=== PATIENT | female | born 2000 | race Two or more races ===

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

== ENCOUNTER 2023-11-19 00:24 | Emergency (ER) | payer SELFPAY ==
[~2023-11-19] VITALS: Ht 165.1 cm; Wt 86.2 kg
[~2023-11-19 00:24] MED LIST changes: +ARIP5TAB10 PO; -ARIP5TAB4 PO
[2023-11-19 00:35] VITALS: BP 106/78; TEMP 98; O2SAT 99
[2023-11-19] MEDS ORDERED: ACETAMINOPHEN ES 500 MG TABLET ONE (00:46)
[2023-11-19] MEDS ORDERED: ONDANSETRON 4 MG TAB.RAPDIS ONE (00:46)
[2023-11-19] MEDS: ONDANSETRON 4 MG TAB.RAPDIS SL ONE (00:48)
[2023-11-19] MEDS: ACETAMINOPHEN 325 MG TABLET PO ONE (00:48)
[2023-11-19 01:04] LABS: BASOPHILS % (AUTO) 0.4 % (0.0-2.0); EOSINOPHILS % (AUTO) 0.2 % (0.0-6.0); HEMATOCRIT 34 % (33-45); HEMOGLOBIN 11.1 g/dL (11.5-14.8); LYMPHOCYTES # (AUTO) 2.2 K/uL (0.8-4.8); MEAN CORPUSCULAR HEMOGLOBIN 26 PG (26.0-33.0); MEAN CORPUSCULAR HGB CONC 33 g/dl (31.0-36.0); MEAN CORPUSCULAR VOLUME 81 fL (82-100); MONOCYTES # (AUTO) 0.5 K/uL (0.1-1.30); MONOCYTES % (AUTO) 5.3 % (2.0-12.0); NEUTROPHILS # (AUTO) 7.1 K/uL (1.8-8.9); NEUTROPHILS % (AUTO) 72.1 % (43.0-81.0); PLATELET COUNT (AUTO) 336 K/uL (150-450); RED BLOOD CELL COUNT(AUTO) 4.18 MIL/uL (4.0-5.2); RED CELL DISTRIBUTION WIDTH 13.5 % (11.5-15.0); WHITE BLOOD COUNT (AUTO) 9.8 K/uL (4.3-11.0)
[2023-11-19 01:10] LABS: CALCIUM, SERUM 9.1 mg/dL (8.5-10.1); CREATININE 0.4 mg/dL (0.6-1.3); POTASSIUM 3.3 mmol/L (3.5-5.1)
[2023-11-19 01:16] LABS: PARTIAL THROMBOPLASTIN TIME 26.5 SEC (24.3-34.3); PROTHROMBIN TIME 10.6 SECS (9.2-11.1)
[2023-11-19 01:40] LABS: ALBUMIN 3.3 g/dL (3.4-5.0); BILIRUBIN,DIRECT 0.1 mg/dL (0.0-0.2); BILIRUBIN,TOTAL 0.3 mg/dL (0.2-1.0); TOTAL PROTEIN, SERUM 6.9 g/dL (6.4-8.2)
== END 2023-11-19 07:05 | disposition left against medical advice (07) ==
LOC: ER 00:29
DX: N93.9 Abnormal uterine and vaginal bleeding, unspecified (principal); T47.1X5A Adverse effect of other antacids and anti-gastric-secretion drugs, initial encounter; R10.2 Pelvic and perineal pain; J45.909 Unspecified asthma, uncomplicated; Y92.89 Other specified places as the place of occurrence of the external cause
CPT/HCPCS: 99284; 76856; 85025; 80048; 80076; 36415; 85730; 86850; 84702; Q0162

== ENCOUNTER 2025-07-30 15:29 | Emergency (ER) | payer OTHER ==
[~2025-07-30] VITALS: Ht 165.1 cm; Wt 63.5 kg
[2025-07-30 17:49] VITALS: BP 116/78; TEMP 98.4; O2SAT 98
== END 2025-07-30 17:52 | disposition left against medical advice (07) ==
LOC: ER 15:38
DX: R11.2 Nausea with vomiting, unspecified (principal); Z53.21 Procedure and treatment not carried out due to patient leaving prior to being seen by health care provider